=== PATIENT | male | born 2000 | race Caucasian/White ===

== ENCOUNTER 2020-05-20 06:06 | Emergency (ER) | payer OTHER ==
[~2020-05-20 06:06] MED LIST: BACTRIM DS TAB1 EACH PO; KEFLEX CAP 500500 MG PO
== END 2020-05-20 06:50 | disposition home or self-care (01) ==
LOC: ER1 06:06
DX: F41.0 Panic disorder [episodic paroxysmal anxiety] (principal); F17.200 Nicotine dependence, unspecified, uncomplicated
CPT/HCPCS: 99283